=== PATIENT | female | born 1945 | race Caucasian/White ===

== ENCOUNTER → 2018-10-02 | Outpatient (CLI) | payer MEDICARE ==
--- NOTE | 2018-10-03 09:58 | KCIC ---
EXAMINATION: Magnetic resonance imaging (MRI) of the lumbar spine without contrast 10/02/2018 4:15 PM HISTORY: Lumbar radiculopathy TECHNIQUE: Multiplanar multi-weighted MRI of the lumbar spine was performed without intravenous contrast using the standard lumbar spine protocol. Contrast information: None administered. COMPARISON: None available. FINDINGS: There is minimal retrolisthesis of L1 on L2. There is an inferior endplate Schmorl's node at L1 without significant height loss. Vertebral body heights are maintained. Marrow signal intensity is normal in all sequences. There is mild disc height loss at L2-L3 with moderate anterior marginal osteophytosis. There is disc desiccation at all levels of the lumbar spine, sparing L5-S1. The conus medullaris terminates at L1. Distal spinal cord signal intensity is normal in all sequences. Distal abdominal aorta is normal in caliber. No suspicious retroperitoneal abnormality is identified. L1-L2: There is mild disc bulge. There is mild facet arthropathy. There is mild bilateral neuroforaminal stenosis. Mild spinal canal stenosis. L2-L3: There is mild circumferential disc bulge. There is mild facet arthropathy. There is mild bilateral neuroforaminal stenosis. No significant spinal canal stenosis. L3-L4: There is a mild circumferential disc bulge asymmetric to the left. There is moderate right and mild left facet arthropathy. There is mild left neuroforaminal stenosis. Mild spinal canal stenosis. L4-L5: There is a mild to moderate circumferential disc bulge. There is moderate to severe facet arthropathy with ligamentum flavum infolding. There is mild bilateral neuroforaminal stenosis. There is moderate spinal canal stenosis. L5-S1: There is minimal disc bulge. There is moderate facet arthropathy. No significant neuroforaminal or spinal canal stenosis. Visualized portions of the sacrum appear intact. IMPRESSION: 1. Mild degenerative changes of the lumbar spine, as described in detail above. There is minimal retrolisthesis of L1 on L2. Electronically signed by: China Hutchins MD (10/03/2018 9:53 AM) [facility]
== END | disposition home or self-care (01) ==
LOC: KCIC MRI 15:42
PROVIDERS: ATTEND Nurse Practitioner
DX: M47.26 Other spondylosis with radiculopathy, lumbar region (principal); M43.16 Spondylolisthesis, lumbar region; M12.88 Other specific arthropathies, not elsewhere classified, other specified site; M48.061 Spinal stenosis, lumbar region without neurogenic claudication; M51.46 Schmorl's nodes, lumbar region
CPT/HCPCS: 72148